=== PATIENT | male | born 1965 | race Caucasian/White ===

== ENCOUNTER 2022-07-26 21:02 | Emergency (ER) | payer SELFPAY ==
[~2022-07-26] VITALS: Ht 182.9 cm; Wt 72.6 kg
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
[2022-07-27 05:00] VITALS: BP 117/70
--- NOTE | 2022-07-27 05:42 | NUR ---
Patient discharged to home in stable condition. Written and verbal after care instructions given. Patient verbalizes understanding of instruction.
== END 2022-07-27 05:43 | disposition home or self-care (01) ==
LOC: ER 21:05
DX: F10.129 Alcohol abuse with intoxication, unspecified (principal); R41.82 Altered mental status, unspecified; Y90.9 Presence of alcohol in blood, level not specified
CPT/HCPCS: 70450-TC